=== PATIENT | male | born 1970 | race African-American/Black ===

== ENCOUNTER 2018-06-19 16:16 | Inpatient (IN) | payer OTHER ==
[~2018-06-19] VITALS: Ht 154.9 cm; Wt 162.0 kg
[~2018-06-19 16:16] MED LIST: AUGMENTIN 875-1 EACH PO; PERCOCET 5-3251 EACH PO
[2018-06-19 16:45] LABS: ABSOLUTE BASOPHIL COUNT 0 /CUMM (0.0-0.2); ABSOLUTE EOSINOPHIL COUNT 0.3 /CUMM (0.0-0.7); ABSOLUTE GRANULOCYTE CT 4.2 /CUMM (1.4-6.5); ABSOLUTE LYMPH COUNT 1.7 /CUMM (1.2-3.4); ABSOLUTE MONOCYTE COUNT 0.5 /CUMM (0.10-0.60); BASOPHIL % 0.4 % (0.0-2.0); GRANULOCYTE % 62.9 % (42.2-75.2); HEMATOCRIT 45.2 % (42-52); MEAN CORPUSCULAR HGB 28.6 PG (27.0-31.0); MEAN CORPUSCULAR HGB CONC 33.7 G/DL (33.0-37.0); MEAN CORPUSCULAR VOLUME 84.9 FL (80.0-94.0); MEAN PLATELET VOLUME 10.3 FL (7.4-10.4); PLATELET COUNT 164 /CUMM (130-400); RED BLOOD CELL CT 5.32 /CUMM (4.70-6.10); WHITE BLOOD CELL COUNT 6.8 /CUMM (4.8-10.8)
--- NOTE | 2018-06-19 16:46 | ED DYSPNEA/ASTHMA COMPLAINT ---
History of Present Illness General Chief Complaint: Upper Respiratory Sx/Fever Stated Complaint: URI X 3DAYS Source: patient Exam Limitations: no limitations Vital Signs & Intake/Output Vital Signs & Intake/Output Vital Signs Date Time Temp Pulse Resp B/P B/P Pulse O2 O2 Flow FiO2 Mean Ox Delivery Rate 06/19 1820 92 Nasal 4.0L Cannula 06/19 1819 80 22 187/97 87 Room Air 06/19 1716 93 Nasal 3.5L Cannula 06/19 1701 89 06/19 1650 91 06/19 1630 92 06/19 1618 97.4 89 20 176/97 88 Room Air Room Air Allergies Coded Allergies: No Known Allergies (06/19/18) Reconcile Medications Amoxicillin/Potassium Clav (Augmentin 875-125 Tablet) 1 EACH TABLET 1 TAB PO BID dental Oxycodone HCl/Acetaminophen (Percocet 5-325 MG Tablet) 1 EACH TABLET 1 TAB PO BID PRN breakthrough pain Triage Note: PT TO ED FOR C/C OF SOB, PRODUCTIVE COUGH, ACHING JOINTS AND CHILLS. PT INITIALLY 88% RA AND THEN CAME TO 90% IN TRIAGE. NO SIGNIFICANT DISTRESS NOTED IN TRIAGE. DENIES CHEST PAIN. Triage Nurses Notes Reviewed? yes Onset: Abrupt Duration: day(s): (3), constant, continues in ED, getting worse Timing: single episode today Severity: moderate, severe Activities at Onset: none Prior Episodes/Possible Cause: no prior episodes Associated Symptoms: cough, wheezing HPI: 48-year-old male history of hypertension presents for evaluation of cough congestion and wheezing for the past 3 days. Patient was turned over to smoker. His cough is productive of yellow sputum. He reports associated chest tightness and shortness of breath. No chest pain no hemoptysis. No lower extremity edema. He only takes blood pressure medicine but did not take it today. He denies any history of lung disease. He's never been prescribed a inhaler. He does report some chills and sweats. (Luis Hunt) Past History Travel History Traveled to [place] past 21 day No Medical History Any Pertinent Medical History? 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 No (Luis Hunt) Review of Systems Review of Systems Constitutional: Reports: malaise, weakness. EENTM: Reports: no symptoms. Respiratory: Reports: see HPI, cough, short of breath, sputum production, wheezing. Cardiovascular: Reports: no symptoms. GI: Reports: no symptoms. Genitourinary: Reports: no symptoms. Musculoskeletal: Reports: no symptoms. Skin: Reports: no symptoms. Neurological/Psychological: Reports: no symptoms. Hematologic/Endocrine: Reports: no symptoms. Immunologic/Allergic: Reports: no symptoms. All Other Systems: Reviewed and Negative (Luis Hunt) Physical Exam Physical Exam General Appearance: well developed/nourished, no apparent distress, alert, awake , obese Head: atraumatic, normal appearance Eyes: Bilateral: normal appearance, PERRL, EOMI. Ears, Nose, Throat: normal pharynx, normal ENT inspection, hearing grossly normal Neck: normal inspection, supple, full range of motion Respiratory: chest non-tender, no respiratory distress, rhonchi, wheezing Cardiovascular: regular rate/rhythm, normal peripheral pulses Peripheral Pulses: 2+ radial (R), 2+ radial (L) Gastrointestinal: normal bowel sounds, soft, non-tender, no organomegaly Extremities: normal inspection, normal range of motion, no edema Neurologic/Psych: no motor/sensory deficits, awake, alert, oriented x 3, normal gait, normal mood/affect Skin: intact, normal color, warm/dry Lymphatic: no anterior cervical emi Core Measures ACS in differential dx? No CVA/TIA Diagnosis No Sepsis Present: No Sepsis Focused Exam Completed? No (Luis Hunt) Progress Differential Diagnosis: asthma, AMI, bronchitis, CHF, COPD, musculoskeletal pain , pericarditis, pulmonary embolism, pneumonia, pneumothorax, rib fracture, unstable angina Plan of Care: Orders Procedure Date/time Status Heart Healthy Diet 06/20 B Active Patient Data 06/19 1913 Active ED Holding Orders 06/19 1900 Active Admit to inpatient 06/19 1900 Active Vital Signs 06/19 1900 Active Code Status 06/19 1900 Active Add-on Test (ER Only) 06/19 1710 Active MAGNESIUM 06/19 1630 Complete TROPONIN LEVEL 06/19 1621 Complete D-DIMER 06/19 1621 Complete COMPREHENSIVE METABOLIC PANEL 06/19 162 Complete CBC WITHOUT DIFFERENTIAL 06/19 162 Complete EKG 06/19 1621 Active Current Medications Sig/Angi Start time Last Medication Dose Stop Time Status Admin Amlodipine Besylate 10 MG DAILY 06/20 0900 AC (Norvasc) Azithromycin 500 MG ONCE ONE 06/19 1830 AC 06/19 (Zithromax) 06/19 192 1849 Sodium Chloride 250 ML (Normal Saline 0.9%) Magnesium Sulfate 1 GM ONCE ONE 06/19 1715 AC 06/19 (Mag Sulfate in D5) 06/19 2114 172 Dextrose/Water 100 ML (D5W) Laboratory Tests 06/19/18 1630: Anion Gap 8, Estimated GFR > 60, BUN/Creatinine Ratio 12.2, Glucose 110 H, Calcium 9.5, Magnesium 1.8, Total Bilirubin 0.4, AST 43, ALT 53, Alkaline Phosphatase 105, Troponin I < 0.01, Total Protein 7.7, Albumin 4.3, Globulin 3.4 , Albumin/Globulin Ratio 1.3, D-Dimer High Sensitivty < 200, CBC w Diff NO MAN DIFF REQ, RBC 5.32, MCV 84.9, MCH 28.6, MCHC 33.7, RDW 15.0 H, MPV 10.3, Gran % 62.9, Lymphocytes % 25.6, Monocytes % 7.1, Eosinophils % 4.0, Basophils % 0.4, Absolute Granulocytes 4.2, Absolute Lymphocytes 1.7, Absolute Monocytes 0.5, Absolute Eosinophils 0.3, Absolute Basophils 0 Patient presents with cough congestion and wheezing chest tightness and shortness of breath. He denies any history of lung disease. He is a heavy smoker. Initial oxygen saturation is 88% on room air. His pulse and a continuous neb given 60 mg prednisone. Labs chest x-ray EKG ordered. Blood work ekg are unremarkable. Chest x-ray is clear. Patient continues to have significant wheezing. Magnesium was ordered. Patient will require admission. He is also hypertensive he did not take his blood pressure medicines. Toprol hydrochlorothiazide amlodipine and losartan were ordered. Patient is on 4 L nasal cannula and maintaining oxygen saturation at 91-92%. He will require admission for pulmonology consult, IV antibiotics, IV steroids, serial labs, oxygen. Case discussed with Dr. Vaughn he agrees. Diagnostic Imaging: Viewed by Me: Radiology Read. Discussed w/RAD: Radiology Read. CXR Impression: PATIENT: ZAIRA CULLEN PRESENT AGE: 48 PATIENT ACCOUNT NO: [id number] : 71 LOCATION: [facility] ORDERING PHYSICIAN: Luis BARCLAY SERVICE DATE: 06/19/18 EXAM TYPE: RAD - XRY-CHEST XRAY, TWO VIEWS EXAMINATION: XR CHEST CLINICAL INFORMATION: Cough. Wheezing. Hypoxia. COMPARISON: Chest x-ray 12/17/2006 TECHNIQUE: 2 views of the chest were obtained. FINDINGS: No significant abnormality is noted involving the heart, lungs, mediastinum, bony thorax or soft tissues. IMPRESSION: Unremarkable examination. DICTATED BY: Juan Edwards MD DATE/TIME DICTATED:06/19/181837 TOOL CHASER:JAYME DATE/TIME TRANSCRIBED:06/19/181837 CONFIDENTIAL, DO NOT COPY WITHOUT APPROPRIATE AUTHORIZATION. <Electronically signed in Other Vendor System> SIGNED BY: Juan Edwards MD 06/19/181841 Initial ED EKG: normal sinus rhythm, first-degree AV block, left axis deviation AGE indeterminate anteroseptal infarct (Luis Hunt) Departure Departure Disposition: STILL A PATIENT Condition: Stable Clinical Impression Primary Impression: Bronchitis Secondary Impressions: Hypoxia Referrals: Christopher CHAIDEZ,Juan Melgoza (PCP/Family) Departure Forms: Customer Survey General Discharge Information Admission Note Spoke With: Monty George MD Documentation of Exam: Documentation of any treatments & extenuating circumstances including Concerns Regarding Discharge (functional status, medication knowledge or non-compliance, living conditions, etc.) that warrant an admission rather than observation:pt is hypoxic on room ri to 88% despitie multiple nebs and steriods. he will need serial labs, oxygen, iv steroids, duo nebs, pulmonology] (Luis Hunt) PA/LIBERAL ARTS TEACHER Co-Sign Statement Statement: ED Attending supervision documentation- [X] I saw and evaluated the patient. I have also reviewed all the pertinent lab results and diagnostic results. I agree with the findings and the plan of care as documented in the PA's/LIBERAL ARTS TEACHER's documentation. [X] I have reviewed the ED Record and agree with the PA's/LIBERAL ARTS TEACHER's documentation. [] Additions or exceptions (if any) to the PAs/LIBERAL ARTS TEACHER's note and plan are summarized below: [Patient to be admitted for severe asthmatic bronchitis. Pulmonary consultation , nebulizers, IV antibiotics, IV steroids] (Roderick CHAIDEZ,Jim Laird) Critical Care Note Critical Care Note Critical Care Time: 75-104 min (Luis Hunt) [X] I have reviewed the ED Record and agree with the PA's/LIBERAL ARTS TEACHER's documentation. [] Additions or exceptions (if any) to the PAs/LIBERAL ARTS TEACHER's note and plan are summarized below: [Patient to be admitted for severe asthmatic bronchitis. Pulmonary consultation , nebulizers, IV antibiotics, IV steroids] (Roderick CHAIDEZ,Jim Laird) Critical Care Note Critical Care Note Critical Care Time: 75-104 min (Luis Hunt)
--- NOTE | 2018-06-19 18:42 | RADIOLOGY REPORT ---
EXAMINATION: XR CHEST CLINICAL INFORMATION: Cough. Wheezing. Hypoxia. COMPARISON: Chest x-ray 12/17/2006 TECHNIQUE: 2 views of the chest were obtained. FINDINGS: No significant abnormality is noted involving the heart, lungs, mediastinum, bony thorax or soft tissues. IMPRESSION: Unremarkable examination.
--- NOTE | 2018-06-19 19:25 | History & Physical ---
Mara Cline 06/19/181924: General Information and HPI MD Statement: I have seen and personally examined ZAIRA CULLEN and documented this H&P. The patient is a 48 year old M who presented with a patient stated chief complaint of []. Source of Information: patient Exam Limitations: no limitations History of Present Illness: 48 year old obese male with PMH HTN, HERACLIO with CPAP hs (dx 4 weeks ago), current 1ppd smoker x 27years presenting with three day history of sinus congestion, rhinorrhea, and productive cough. Patient reports associated symptoms including progressive SOB, tactile fevers, chills, sweats, decrease in appetite, and pleuritic chest pain with coughing. He also had a headache. He states his granddaughter was recently ill with URI and he was caring for her. He tried taking OTC cough syrup with minimal relief. I did advise the patient that he needs to be cautious when taking OTC cough syrups with HTN as these may worsen his HTN. He denies chest pain at rest or with ambulation, n/v/d, dysuria, abdominal pain. 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 Home Who Do You Live With? child (two sons) Services at Home: None Primary Language: Slovak Smoking Status: Current Everyday Smoker (1ppd x 27 years) ETOH Use: 3 beers and 5 tequila shots on weekends Illicit Drug Use: denies illicit drug use Employment History Employment Unemployed (lost his job in March 2018) Review of Systems Review of Systems Constitutional: Reports: chills, diaphoresis, fever. EENTM: Reports: nasal congestion. Denies: eye drainage, ear discharge, throat pain. Cardiovascular: Reports: no symptoms. Respiratory: Reports: cough, short of breath, sputum production. GI: Denies: abdominal pain, constipation, diarrhea, nausea, vomiting. Genitourinary: Reports: no symptoms. Musculoskeletal: Reports: no symptoms. Skin: Reports: no symptoms. Neurological/Psychological: Reports: no symptoms. Exam & Diagnostic Data Last 24 Hrs of Vital Signs/I&O Vital Signs Date Time Temp Pulse Resp B/P B/P Pulse O2 O2 Flow FiO2 Mean Ox Delivery Rate 06/20 0028 71 92 06/20 0008 92 Nasal 3.0L Cannula 06/19 2214 98.3 76 20 169/80 91 Nasal Cannula 06/19 2200 Nasal 2.0L Cannula 06/19 2137 98.2 76 18 152/81 94 Room Air 06/19 2029 79 17 180/89 94 Nasal Cannula 06/19 1820 92 Nasal 4.0L Cannula 06/19 1819 80 22 187/97 87 Room Air 06/19 1716 93 Nasal 3.5L Cannula 06/19 1701 89 06/19 1650 91 06/19 1630 92 06/19 1618 97.4 89 20 176/97 88 Room Air Room Air Intake & Output 06/20 0800 06/20 0000 06/19 1600 Intake Total 340 Output Total Balance 340 Intake, IV 100 Intake, Oral 240 Patient 357 lb Weight Weight Bed scale Measurement Method Physical Exam General Appearance Alert, Oriented X3, Cooperative, No Acute Distress, obese male Skin 1+pitting edema to LLE Skin Temp/Moisture Exam: Hot/Diaphoretic HEENT Atraumatic, PERRLA, frontal/maxillary sinuses NTTP Neck Supple Lymphatic Cervical nl Cardiovascular Regular Rate, Normal S1, Normal S2, No Murmurs Lungs inspiratory/expiratory wheezes diffuse Abdomen Normal Bowel Sounds, Soft, No Tenderness, obese Extremities No Cyanosis, Normal Pulses, symmetrical bilateral lower extremities; non tender to palp Assessment/Plan Assessment: 48 year old obese male with PMH HTN, HERACLIO with CPAP hs (dx 4 weeks ago), current 1ppd smoker x 27years presenting with three day history of sinus congestion, rhinorrhea, and productive cough. He was recently taking care of his granddaughter who had URI. Patient was acutely hypoxic on presentation to ED; sat 88% requiring 4LNC. Patient will be admitted to the general medicine service for further care of the following: Problem List: 1. URI 2. Acute Hypoxic respiratory failure 2/2 bronchitis 3. Hypertensive Urgency Admission Data: VS T97.4 P89 RR20 BP 180/70 Sat 88%RA Labs: WBC 6.8 H/H 15.2/45.2 Na 138 K3.5 BUN/Cr 11/0.9 D-dimer negative CXR no acute findings ED tx: ceftriaxone; azithromycin; magnesium sulfate #URI-likely viral in nature and symptoms should resolve. Patient caring for sick granddaughter with URI and this is likely how he contracted his current illness. -symptomatic care -tylenol for fever/bodyaches -consider cough suppressant if patient complains of persistent cough. He did not cough while we saw him in the ED. #Acute hypoxic respiratory failure 2/2 bronchitis -supplemental oxygen as needed; taper -insentive spirometry 10x/hr to prevent atelectasis-->PNA -Azithromycin 5 day course -duonebs -Methylprednisolone 40mg Q8hr IV #Hypertensive urgency-patient had not taken his home HTN meds today and was taking OTC cough syrup which can exacerbate his HTN. -home medications #Chronic medical problems -CPAP settings 14 for HERACLIO DVT prophylaxis: lovenox/ALPS/ambulation Code Status: full code As Ranked By This Provider Problem List: 1. Bronchitis 2. Hypoxia Core Measures/Misc (07/15) Acute Coronary Syndrome ACS Diagnosis: No Congestive Heart Failure Congestive Heart Failure Diagnosis No Cerebrovascular Accident CVA/TIA Diagnosis: No VTE (View Protocol) VTE Risk Factors Acute Medical Illness No Mechanical VTE Prophylaxis d/t N/A MechProphylax Ordered No VTE Pharm Prophylaxis d/t NA PharmProphylax ordered Sepsis (View protocol) Sepsis Present: No If YES complete Sepsis Event Note If YES complete Sepsis Event Note Monty George MD 06/19/18 6975: General Information and HPI Allergies/Medications Home Med list Amlodipine Bes/Olmesartan Med (Mellissa 10-40 MG Tablet) 10 MG-40 MG TABLET 1 TAB PO DAILY BP (Reported) Hydrochlorothiazide 25 MG TABLET 1 TAB PO DAILY DIURETIC/BP (Reported) Metoprolol Succ XL (Toprol Xl) 50 MG TAB 1 TAB PO DAILY HEART/BP (Reported) Core Measures/Misc (07/15) Sepsis (View protocol) If YES complete Sepsis Event Note If YES complete Sepsis Event Note Attending MD Review Statement Attending Statement Attending MD Statement: examined this patient, discuss w/resident/PA/FEATHER SHAPER, agreed w/resident/PA/FEATHER SHAPER Attending Assessment/Plan: Patient is seen and examined independently by me. Care plan discussed with director of medical education and/or resident. I agree with the physical exam findings and plan of care as outlined above with the following changes and additions. 48 yo M with history of HTN, HERACLIO on CPAP 14 nightly, chronic smoker (20 pack years), presented with SOB, congestion and productive cough with yellow sputum for 3 days. He also has wheezing, fever and chills. He also has chest tightness associated with coughing. He denies recent travel. But her granddaughter has URI symptoms recently. He is noted to have O2 sat 88% on RA and up to low 90s with NC. On exam, heart: regular, S1S2. Lungs: diffused expiratory wheezing with no rhonchi, rales or crackles. In the ED, patient is afebrile. WBC 6.8. D-dimer <200. Troponin <0.01. CXR shows no acute consolidation or edema. Patient got prednisone 60 mg PO, Duoneb x1, albuterol neb x3, Mag 1 g IV, Zithromax 500 mg IV and ceftriaxone 1 g IV in the ED. Patient is admitted to [facility] for acute hypoxic respiratory failure with COPD exacerbation and bronchitis. Start O2, steroid, Duoneb, albuterol prn and Zithromax. Advise for smoking cessation. CPAP nightly. Monty George MD [facility] [place] 06/19/18 2345: Core Measures/Misc (07/15) Sepsis (View protocol) If YES complete Sepsis Event Note If YES complete Sepsis Event Note Resident Review Statement Resident Statement: examined this patient, discussed with tech intern, agreed with tech intern, discussed with family, reviewed EMR data (avail), discussed with nursing , discussed with case mgmt, reviewed images, amended to note Other Findings: This is a 48-year-old male with past medical history significant for hypertension, obstructive sleep apnea on CPAP presented to the hospital for evaluation of shortness of breath for 3 days. Patient reports ongoing cough for 3 days associated with runny nose and nasal congestion. He also reports yellow colored sputum production and shortness of breath associated with chest tightness. He reports worsening shortness of breath with minimal exertion. He denies any travel history. He reports exposure to sick contacts at home who has upper respiratory tract infection. Of note he never followed any global product manager. He was never diagnosed with COPD. Has obstructive sleep apnea, using CPAP at home. He smokes 1 pack per day for 27 years. Reports alcohol use. Denies illicit drug abuse. On review of systems he denied any chest pain, palpitations, fever, chills, nausea, vomiting, abdominal pain, change in bladder or bowel habits. He reports left lower extremity minor swelling. -------- Vitals afebrile, heart rate 89, respiratory 20, blood pressure 176/97, saturating at 92 on 4 L Labs WBC 6, hemoglobin 15, hematocrit 40, platelets 164 Sodium 138, potassium 3.5, BUN 11 and creatinine 0.9 Chest x-ray no acute cardiopulmonary findings 1. Acute hypoxic respiratory failure secondary to bronchitis Patient presented with worsening shortness of breath with minimal exertion associated with productive cough, runny nose, nasal congestion. Denied fever, chills. He is afebrile, normal WBC count. Chest x-ray no acute cardiopulmonary findings, no pneumonia was found. * Admitted to [facility] * Acute hypoxic respiratory failure most likely secondary to bronchitis/chronic smoking/sick contact exposure and COPD which was not diagnosed * Monitor vitals every shift * Maintain oxygen saturation greater than 90% * Provide oxygen supplementation * IV methylprednisolone 40 every 8 hours * Azithromycin 250 daily for 5 days * incentive spirometry * TR * LORETTA stauffer * Will provide pulm consult at the time of discharge to get outpatient pulmonary function tests Hypertensive urgency Patient has history of hypertension, takes amlodipine, benicar, hydrochlorthiazide, metoprolol at home. He reports that he did not take his medications today. He was found to have blood pressure 180/70 in the emergency room. Received his home meds, blood pressure started improving. Troponin was negative. EKG normal limits. Completely asymptomatic * Continue amlodipine 10 daily * Losartan 100 daily * Hydrochlorothiazide 25 daily * Metoprolol succinate 50 daily Smoker Smokes 1 pack per day for 27 years. Smoking cessation counseling provided Obstructive sleep apnea Continue CPAP at his home settings Full code Regular diet DVT prophylaxis subcu Lovenox Pain pathway Tylenol
[2018-06-19] MEDS ORDERED: TOPROL XL50 M1 PO (19:41)
[2018-06-19] MEDS ORDERED: AZOR 10-40 MG1 EACH PO (19:41)
[2018-06-19] MEDS ORDERED: HYDROCHLOROTHIA25 M1 PO (19:42)
[2018-06-19 22:14] VITALS: BP 169/80
[2018-06-20 05:34] VITALS: BP 100/64
[2018-06-20 06:24] VITALS: BP 120/80
--- NOTE | 2018-06-20 06:50 | PN- Housestaff ---
Alfonso Pena 06/20/18 0647: Subjective Follow-up For: URI Acute Hypoxic respiratory failure secondary to bronchitis Hypertensive Urgency Subjective: I visited and examined the patient is morning, he was lying back in his bed, with his mask on his face. He was alert and oriented 3, in no acute distress. When the nurse checked his oxygen with pulse oximetry, it was 87-88% when he was not on CPAP, on room air. He does not complain of anything, and there was no major reports from nurses overnight. He denies chest pressure, chest pain, lightheadedness, dizziness, nausea, vomiting, abdominal pain, diarrhea, constipation, frequency, dysuria. Review of Systems Constitutional: Reports: see HPI. Objective Last 24 Hrs of Vital Signs/I&O Vital Signs Date Time Temp Pulse Resp B/P B/P Pulse O2 O2 Flow FiO2 Mean Ox Delivery Rate 06/20 1635 93 Nasal 3.0L Cannula 06/20 1600 Nasal 3.0L Cannula 06/20 1505 Nasal 3.0L Cannula 06/20 1402 97.8 76 20 132/80 92 Nasal 3.0L Cannula 06/20 1050 72 92 06/20 0833 97.6 74 20 120/80 06/20 0833 97.6 74 20 120/80 06/20 0832 97.6 74 20 120/80 06/20 0800 93 Nasal 3.0L Cannula 06/20 0800 93 Nasal 3.0L Cannula 06/20 0624 97.6 74 20 120/80 91 CPAP 06/20 0534 97.7 80 20 100/64 95 Room Air 06/20 0320 7 93 06/20 0028 71 92 06/20 0008 92 Nasal 3.0L Cannula 06/19 2214 98.3 76 20 169/80 91 Nasal Cannula 06/19 2200 Nasal 2.0L Cannula 06/19 2137 98.2 76 18 152/81 94 Room Air 06/19 2029 79 17 180/89 94 Nasal Cannula Intake & Output 06/20 1600 06/20 0800 06/20 0000 Intake Total 400 340 Output Total Balance 400 340 Intake, IV 100 Intake, Oral 400 240 Patient 357 lb Weight Weight Bed scale Measurement Method Physical Exam General Appearance: Alert, Oriented X3, Cooperative, No Acute Distress Skin: No Rashes Skin Temp/Moisture Exam: Warm/Dry Sepsis Skin Exam (color): Normal for Ethnicity HEENT: Atraumatic Neck: Supple Cardiovascular: Regular Rate, Normal S1, Normal S2 Lungs: Generalized wheezing Abdomen: Normal Bowel Sounds, Soft, No Tenderness Extremities: No Edema Assessment/Plan Assessment: 48 year old obese male with PMH HTN, HERACLIO with CPAP hs (dx 4 weeks ago), current 1ppd smoker for 27years presenting with three day history of sinus congestion, rhinorrhea, and productive cough. He was recently taking care of his granddaughter who had URI. Patient was acutely hypoxic on presentation to ED; sat 88% requiring 4LNC. He had O2 saturation of 87-88% while he was on room air. We will check oxygen saturation with pulse oximetry at night when he is using his CPAP machine on room air. URI: likely viral in nature and symptoms should resolve. Patient caring for sick granddaughter with URI and this is likely how he contracted his current illness. Plan: symptomatic care, tylenol for fever/bodyaches, consider cough suppressant if patient complains of persistent cough. He did not cough while we saw him in the ED. Acute hypoxic respiratory failure: Secondary to bronchitis, knit tubing dyer consult appreciated. Plan: supplemental oxygen as needed; taper, insentive spirometry 10x/hr to prevent atelectasis-->PNA, Azithromycin 5 day course, duonebs, Methylprednisolone 40mg Q8hr IV Hypertensive urgency: patient had not taken his home HTN meds today and was taking OTC cough syrup which can exacerbate his HTN. Asymptomatic Plan: home medications #Chronic medical problems -CPAP settings 14 for HERACLIO DVT prophylaxis: lovenox/ALPS/ambulation Code Status: full code Problem List: 1. Bronchitis 2. Hypoxia 3. HERACLIO on CPAP 4. HTN (hypertension) Pain Ratin Pain Location: Not applicable Pain Goal: Remain pain free Pain Plan: Not applicable Tomorrow's Labs & Rationales: As indicated Andreas Wing MD 06/20/18 1427: Attending MD Review Statement Attending Statement Attending Statement: examined this patient, discuss w/resident/PA/STEEL DIE PRINTER, agreed w/resident/PA/STEEL DIE PRINTER, discussed with family, reviewed EMR data (avail), discussed with nursing, discussed with case mgmt, reviewed images, amended to note Attending Assessment/Plan: The patient was seen and discussed with house staff. Appreciate pulmonary input. Will continue IV Medrol & aerosol. Overnight pulse ox to be done (respiratory), oral Zithromax.
[2018-06-20 10:04] LABS: ABSOLUTE BASOPHIL COUNT 0 /CUMM (0.0-0.2); ABSOLUTE EOSINOPHIL COUNT 0 /CUMM (0.0-0.7); ABSOLUTE MONOCYTE COUNT 0.1 /CUMM (0.10-0.60); BASOPHIL % 0.2 % (0.0-2.0); EOSINOPHIL % 0 % (0-5); HEMATOCRIT 44.1 % (42-52); MEAN CORPUSCULAR HGB 28.8 PG (27.0-31.0); MEAN CORPUSCULAR HGB CONC 33.7 G/DL (33.0-37.0); MEAN CORPUSCULAR VOLUME 85.7 FL (80.0-94.0); PLATELET COUNT 153 /CUMM (130-400); RED BLOOD CELL CT 5.15 /CUMM (4.70-6.10); WHITE BLOOD CELL COUNT 9.1 /CUMM (4.8-10.8)
[2018-06-20 11:28] LABS: GRANULOCYTE % 87.9 % (42.2-75.2)
--- NOTE | 2018-06-20 12:30 | Cons- Pulmonary ---
General Information and HPI Consulting Request Date of Consult: 06/20/18 Requested By: Dr. Wing Reason for Consult: Bronchospasm Source of Information: patient, family, old records Exam Limitations: no limitations History of Present Illness: The patient is a 48 year old male with a past medical history significant for extremely severe HERACLIO, noting the patient had an overnight split sleep study on that showed an overall apnea-hypopnea index of 67 events per hour with an oxyhemoglobin saturation mina of 70%. The patient's REM AHI was elevated at 92 events per hour. The patient was placed on nasal CPAP, and found to be well controlled at a pressure of 14 cm H2O. The patient also has a past medical history significant for hypertension, and tobacco use noting he is a current smoker and has been smoking 1 pack per day for the past 27 years. The patient was admitted with a 3 day history of increased chest congestion, cough productive of yellow joel sputum, nasal congestion, and increased shortness of breath. The patient felt so short of breath, he thought he was going to pass out. He had no chest pain. There is no report of fevers. The patient has had exposure to known sick contacts at home. The patient has never been admitted to the hospital for respiratory issues. On presentation, the patient was found to have significant evidence of bronchospasm and tracheobronchitis. His chest x- ray was unremarkable. The patient is currently being treated with IV Solu- Medrol 40 mg every 8 hours, oral azithromycin, nebulizer treatment/total respiratory care, and guaifenesin. He reports feeling improved since admission. Allergies/Medications Allergies: Coded Allergies: No Known Allergies (06/19/18) Home Med List: Amlodipine Bes/Olmesartan Med (Mellissa 10-40 MG Tablet) 10 MG-40 MG TABLET 1 TAB PO DAILY BP (Reported) Hydrochlorothiazide 25 MG TABLET 1 TAB PO DAILY DIURETIC/BP (Reported) Metoprolol Succ XL (Toprol Xl) 50 MG TAB 1 TAB PO DAILY HEART/BP (Reported) Current Medications: Current Medications Sig/Angi Start time Last Medication Dose Route Stop Time Status Admin Acetaminophen 650 MG Q6P PRN 06/19 2100 AC PO Albuterol Sulfate 3 ML EVERY 4 HRS/AWAKE 06/20 1200 AC 06/20 INH 1056 Albuterol Sulfate 3 ML ONCE ONE 06/19 1715 DC 06/19 INH 06/19 1716 1716 Albuterol Sulfate 3 ML ONCE ONE 06/19 1700 DC 06/19 INH 06/19 1701 1700 Albuterol Sulfate 3 ML ONCE ONE 06/19 1645 DC 06/19 INH 06/19 1646 1649 Albuterol Sulfate 3 ML ONCE ONE 06/19 1630 DC 06/19 INH 06/19 1631 1630 Amlodipine Besylate 10 MG DAILY 06/20 09 CAN PO Amlodipine Besylate 10 MG DAILY 06/20 0900 AC 06/20 PO 0832 Amlodipine Besylate 0 .STK-MED ONE 06/19 1919 DC PO Amlodipine Besylate 10 MG ONCE ONE 06/19 1915 DC 06/19 PO 06/19 1916 192 Azithromycin 250 MG DAILY 06/20 0900 AC 06/20 PO 0833 Azithromycin 500 MG ONCE ONE 06/19 1830 DC 06/19 Sodium Chloride 250 ML IV 06/19 1929 1849 Ceftriaxone Sodium 0 .STK-MED ONE 06/19 184 DC .ROUTE Ceftriaxone Sodium 1,000 MG ONCE ONE 06/19 1830 DC 06/19 IV 06/19 183 1849 Enoxaparin Sodium 40 MG DAILY 06/20 0900 AC 06/20 SC 0833 Guaifenesin 0 .STK-MED ONE 06/20 1113 DC PO Guaifenesin 600 MG Q12 06/20 0945 AC 06/20 PO 1113 Hydrochlorothiazide 25 MG DAILY 06/20 0900 AC 06/20 PO 0832 Hydrochlorothiazide 25 MG ONCE ONE 06/19 1915 DC 06/19 PO 06/19 1916 2117 Ipratropium [place] 2.5 ML EVERY 4 HRS/AWAKE 06/20 1200 AC 06/20 INH 1056 Ipratropium [place] 2.5 ML ONCE ONE 06/19 1630 DC 06/19 INH 06/19 1631 1630 Losartan Potassium 100 MG DAILY 06/20 0900 AC 06/20 PO 0833 Losartan Potassium 0 .STK-MED ONE 06/19 1919 DC PO Losartan Potassium 50 MG ONCE ONE 06/19 1915 DC 06/19 PO 06/19 1916 192 Magnesium Sulfate 1 GM ONCE ONE 06/19 1715 DC 06/19 Dextrose/Water 100 ML IV 06/194 1725 Methylprednisolone 40 MG Q8 06/19 2200 AC 06/20 IV 0506 Metoprolol Succinate 50 MG DAILY 06/20 0900 AC 06/20 PO 0833 Metoprolol Tartrate 0 .STK-MED ONE 06/19 191 DC PO Metoprolol Tartrate 50 MG ONCE ONE 06/19 1915 DC 06/19 PO 06/19 1916 1921 Prednisone 60 MG ONCE ONE 06/19 1630 DC 06/19 PO 06/19 1631 1626 Prednisone 0 .STK-MED ONE 06/19 1625 DC PO Review of Systems Review of Systems Constitutional: Reports: chills, malaise. Denies: diaphoresis, weakness, unexplained weight loss. EENTM: Denies: no symptoms. Cardiovascular: Reports: orthopena. Denies: chest pain, edema, palpitations, peripheral edema, syncope. Respiratory: Reports: cough, short of breath, sputum production, wheezing. Denies: hemoptysis, orthopnea, stridor. GI: Denies: no symptoms. Genitourinary: Denies: no symptoms. Skin: Denies: no symptoms. Past History Travel History Traveled to [place] past 21 day No Medical History Blood Transfusion Hx: No Neurological: NONE EENT: NONE Cardiovascular: hypertension Respiratory: obstructive sleep apnea Gastrointestinal: NONE Hepatic: NONE Renal: NONE Musculoskeletal: NONE Psychiatric: NONE Endocrine: NONE Blood Disorders: NONE Cancer(s): NONE TRAINING DEVELOPMENT MANAGER/Reproductive: NONE Surgical History Surgical History: 1 Psychosocial History Where Do You Live? Home Who Do You Live With? child (two sons) Services at Home: None Primary Language: Indonesian Smoking Status: Current Everyday Smoker (1ppd x 27 years) ETOH Use: 3 beers and 5 tequila shots on weekends Illicit Drug Use: denies illicit drug use Employment History Employment: Unemployed (lost his job in March 2018) Exam & Diagnostic Data Last 24 Hrs of Vital Signs/I&O Vital Signs Date Time Temp Pulse Resp B/P B/P Pulse O2 O2 Flow FiO2 Mean Ox Delivery Rate 06/20 1050 72 92 06/20 0833 97.6 74 20 120/80 06/20 0833 97.6 74 20 120/80 06/20 0832 97.6 74 20 120/80 06/20 0624 97.6 74 20 120/80 91 CPAP 06/20 0534 97.7 80 20 100/64 95 Room Air 06/20 0320 7 93 06/20 0028 71 92 06/20 0008 92 Nasal 3.0L Cannula 06/194 98.3 76 20 169/80 91 Nasal Cannula 06/19 2200 Nasal 2.0L Cannula 06/19 2137 98.2 76 18 152/81 94 Room Air 06/19 2029 79 17 180/89 94 Nasal Cannula 06/19 1820 92 Nasal 4.0L Cannula 06/19 1819 80 22 187/97 87 Room Air 06/19 1716 93 Nasal 3.5L Cannula 06/19 1701 89 06/19 1650 91 06/19 1630 92 06/19 1618 97.4 89 20 176/97 88 Room Air Room Air Intake & Output 06/20 1600 06/20 0800 06/20 0000 Intake Total 400 340 Output Total Balance 400 340 Intake, IV 100 Intake, Oral 400 240 Patient 357 lb Weight Weight Bed scale Measurement Method Physical Exam General Appearance: no apparent distress, alert, awake, comfortable Head: atraumatic Eyes: Bilateral: PERRL. Neck: supple Respiratory: no respiratory distress, wheezing Cardiovascular: regular rate/rhythm Gastrointestinal: normal bowel sounds, soft, non-tender Extremities: no edema Skin: intact, normal color, warm/dry Last 48 Hrs of Labs/Cy: Laboratory Tests 06/20/18 0845: Anion Gap 10, Estimated GFR > 60, BUN/Creatinine Ratio 16.7, CBC w Diff NO MAN DIFF REQ, RBC 5.15, MCV 85.7, MCH 28.8, MCHC 33.7, RDW 15.0 H, MPV 11.0 H, Gran % 87.9 H, Lymphocytes % 10.6 L, Monocytes % 1.3 L, Eosinophils % 0, Basophils % 0.2, Absolute Granulocytes 8.0 H, Absolute Lymphocytes 1.0 L, Absolute Monocytes 0.1, Absolute Eosinophils 0, Absolute Basophils 0 06/19/18 1630: Anion Gap 8, Estimated GFR > 60, BUN/Creatinine Ratio 12.2, Glucose 110 H, Calcium 9.5, Magnesium 1.8, Total Bilirubin 0.4, AST 43, ALT 53, Alkaline Phosphatase 105, Troponin I < 0.01, Total Protein 7.7, Albumin 4.3, Globulin 3.4 , Albumin/Globulin Ratio 1.3, D-Dimer High Sensitivty < 200, CBC w Diff NO MAN DIFF REQ, RBC 5.32, MCV 84.9, MCH 28.6, MCHC 33.7, RDW 15.0 H, MPV 10.3, Gran % 62.9, Lymphocytes % 25.6, Monocytes % 7.1, Eosinophils % 4.0, Basophils % 0.4, Absolute Granulocytes 4.2, Absolute Lymphocytes 1.7, Absolute Monocytes 0.5, Absolute Eosinophils 0.3, Absolute Basophils 0 Assessment/Plan Impression/Plan: 1. Acute bronchitis. 2. Acute bronchospasm. 3. Extremely severe obstructive sleep apnea, controlled on CPAP at 14 cm H20. 4. Nocturnal hypoxemia. 5. Morbid obesity. 6. Tobacco use disorder. Recommendations: * Check nocturnal continuous pulse oximetry while on CPAP on room air. Please request this from respiratory. * Continue nasal CPAP at 14 cm H2O. * Continue nebs/total respiratory care. * If the patient's bronchial spasm does not improve, we need to consider discontinuation of beta-blockers. * Continue Solu-Medrol 40 mg every 8 hours. * Complete 5 days of oral azithromycin. * Send sputum for culture if able. * Continue blood pressure control per primary team. * DVT prophylaxis at all times. * Continue all supportive care. Thank you for the consult. I will follow the patient along with you and provide further recommendations as necessary. Please do not hesitate to contact me if there are any questions or issues. Consult Acknowledgment - Thank you for your consult request.
[2018-06-20 14:02] VITALS: BP 132/80
[2018-06-20 21:45] VITALS: BP 160/90
[2018-06-21 06:38] VITALS: BP 102/50
--- NOTE | 2018-06-21 07:04 | PN- Housestaff ---
Renee Nazario 06/21/18 0704: Subjective Follow-up For: Acute hypoxic resp. failure sec to bronchitis Subjective: Pt seen lying comfortably in bed, taking nebs Rx. NAD. He is complaining of post -nasal drip. Review of Systems Constitutional: Reports: see HPI. EENTM: Reports: no symptoms. Cardiovascular: Reports: no symptoms. Respiratory: Reports: see HPI. Gastrointestinal: Reports: no symptoms. Genitourinary: Reports: no symptoms. Musculoskeletal: Reports: no symptoms. Skin: Reports: no symptoms. Neurological/Psychological: Reports: no symptoms. Hematologic/Endocrine: Reports: no symptoms. Immunologic/Allergic: Reports: no symptoms. Objective Last 24 Hrs of Vital Signs/I&O Vital Signs Date Time Temp Pulse Resp B/P B/P Pulse O2 O2 Flow FiO2 Mean Ox Delivery Rate 06/21 1637 93 Room Air Room Air 06/21 1447 98.3 74 20 122/62 91 Nasal 3.0L Cannula 06/21 1400 95 Room Air 06/21 1143 94 Room Air Room Air 06/21 0859 97.7 44 20 102/50 06/21 0859 97.7 44 20 102/50 06/21 0858 97.7 44 20 102/50 06/21 0814 93 Nasal 1.0L Cannula 06/21 0800 92 Nasal 3.0L Cannula 06/21 0638 97.7 44 20 102/50 92 Nasal 3.0L Cannula 06/21 0610 67 90 06/21 0600 89 CPAP 06/21 0308 55 90 06/21 0015 61 89 06/21 0000 93 Nasal 3.0L Cannula Intake & Output 06/21 1600 06/21 0800 06/21 0000 Intake Total 800 180 120 Output Total Balance 800 180 120 Intake, Oral 800 180 120 Physical Exam General Appearance: Alert, Oriented X3, Cooperative, No Acute Distress Skin: No Rashes, No Breakdown, No Significant Lesion Skin Temp/Moisture Exam: Cool/Dry Sepsis Skin Exam (color): Normal for Ethnicity HEENT: Atraumatic, Mucous Membr. moist/pink Neck: Supple Cardiovascular: Regular Rate, Normal S1, Normal S2, No Murmurs Lungs: Clear to Auscultation, Normal Air Movement Abdomen: Normal Bowel Sounds, Soft, No Tenderness, No Hepatospenomegaly, No Masses Neurological: Normal Speech, Normal Tone, Sensation Intact Extremities: No Clubbing, No Cyanosis, No Edema, Normal Pulses, No Tenderness/ Swelling Assessment/Plan Assessment: 48 year old obese male with PMH HTN, HERACLIO with CPAP hs (dx 4 weeks ago), current 1ppd smoker for 27years presenting with three day history of sinus congestion, rhinorrhea, and productive cough. He was recently taking care of his granddaughter who had URI. Patient was acutely hypoxic on presentation to ED; sat 88% requiring 4L NC. URI: Viral likely. Plan: Added flonase for post-nasal drip. Cont. current rx Acute hypoxic respiratory failure: Secondary to bronchitis. Plan: supplemental oxygen as needed; taper, insentive spirometry 10x/hr to prevent atelectasis-->PNA, Azithromycin 5 day course, duonebs, Methylprednisolone 40mg Q8hr IV Severe HERACLIO: Imtra. CPAP at 14 cm H2O Overnight pulse ox done (results pending). Will continue medrol at current dose as per pulmonary and follow exam/pulse ox. Hypertensive urgency: resolved. DVT Px: Lovenox/alps Code: FC Problem List: 1. HERACLIO (obstructive sleep apnea) 2. HTN (hypertension) 3. Bronchitis Pain Ratin Pain Location: none Pain Goal: Remain pain free Pain Plan: n/a Tomorrow's Labs & Rationales: not required Andreas Wing MD 06/21/18: Attending MD Review Statement Attending Statement Attending MD Statement: examined this patient, discuss w/resident/PA/SPECIFICATION WRITER, agreed w/resident/PA/SPECIFICATION WRITER, reviewed EMR data (avail), discussed with nursing, discussed with case mgmt, amended to note Attending Assessment/Plan: The patient was seen and discussed with house staff, nursing, and case management. Lung exam improved with increased air movement and decreased wheeze. Dose complain of some post nasal drip symptoms. Still requiring oxygen to maintain saturation. Pulmonary input appreciated. The patient has severe sleep apnea. Overnight pulse ox done (results pending). Will continue medrol at current dose as per pulmonary and follow exam/pulse ox.
--- NOTE | 2018-06-21 07:56 | PN- Pulmonary ---
Subjective HPI/Critical Care Issues: The patient is awake and alert. He continues to have a cough and wheezing. He is short of breath with exertion. Despite these symptoms, he continues to improve significantly since admission. The patient is afebrile. His saturations are in the low 90s on 1 L nasal cannula. Nocturnal pulse oximetry was done however results are pending. Objective Current Medications: Current Medications Sig/Angi Start time Last Medication Dose Route Stop Time Status Admin Acetaminophen 650 MG Q6P PRN 06/19 2100 AC 06/20 PO 2138 Albuterol Sulfate 3 ML EVERY 4 HRS/AWAKE 06/20 1200 AC 06/20 INH 8 Amlodipine Besylate 10 MG DAILY 06/20 0900 AC 06/20 PO 0832 Azithromycin 250 MG DAILY 06/20 09 AC 06/20 PO 0833 Enoxaparin Sodium 40 MG DAILY 06/20 0900 AC 06/20 SC 0833 Guaifenesin 0 .STK-MED ONE 06/20 1113 DC PO Guaifenesin 600 MG Q12 06/20 0945 AC 06/20 PO 2138 Hydrochlorothiazide 25 MG DAILY 06/20 0900 AC 06/20 PO 0832 Ipratropium [place] 2.5 ML EVERY 4 HRS/AWAKE 06/20 1200 AC 06/20 INH 8 Losartan Potassium 100 MG DAILY 06/20 0900 AC 06/20 PO 0833 Methylprednisolone 40 MG Q8 06/19 2200 AC 06/21 IV 0558 Metoprolol Succinate 50 MG DAILY 06/20 0900 AC 06/20 PO 0833 Patient Medication 1 ED ONE ONE 06/20 1815 [facility] ED 06/20 181 Vital Signs & I&O Last 24 Hrs of Vitals and I&O: Vital Signs Date Time Temp Pulse Resp B/P B/P Pulse O2 O2 Flow FiO2 Mean Ox Delivery Rate 06/21 0638 97.7 44 20 102/50 92 Nasal 3.0L Cannula 06/21 0610 67 90 06/21 0600 89 CPAP 06/21 0308 55 90 06/21 0015 61 89 06/21 0000 93 Nasal 3.0L Cannula 06/20 2145 98.0 84 20 160/90 92 Nasal 3.0L Cannula 06/20 2000 92 Nasal 3.0L Cannula 06/20 1635 93 Nasal 3.0L Cannula 06/20 1600 Nasal 3.0L Cannula 06/20 1505 Nasal 3.0L Cannula 06/20 1402 97.8 76 20 132/80 92 Nasal 3.0L Cannula 06/20 1050 72 92 06/20 0833 97.6 74 20 120/80 06/20 0833 97.6 74 20 120/80 06/20 0832 97.6 74 20 120/80 06/20 0800 93 Nasal 3.0L Cannula 06/20 08 93 Nasal 3.0L Cannula Intake & Output 06/21 0800 06/21 0000 06/20 1600 Intake Total 180 120 Output Total Balance 180 120 Intake, Oral 180 120 Physical Exam General Appearance: no apparent distress, alert, awake, comfortable, morbidly obese Head: atraumatic Neck: supple Respiratory: no respiratory distress, wheezing Cardiovascular: regular rate/rhythm Gastrointestinal: normal bowel sounds, soft, non-tender Extremities: no edema Skin: intact, normal color, warm/dry Impression/Plan Impression/Plan Impression/Plan: 1. Acute bronchitis. 2. Acute bronchospasm. 3. Extremely severe obstructive sleep apnea, controlled on CPAP at 14 cm H20. 4. Nocturnal hypoxemia. 5. Morbid obesity. 6. Tobacco use disorder. Recommendations: * Follow up nocturnal continuous pulse oximetry -this will help determine if the patient requires home nocturnal oxygen while on CPAP. Discussed with respiratory, they will get us the data. * Continue nasal CPAP at 14 cm H2O. * Continue nebs/total respiratory care. * Continue Solu-Medrol 40 mg IV but decrease to every 12 hours. * Complete 5 days of oral azithromycin. * Follow up sputum culture results. * Continue blood pressure control per primary team. * DVT prophylaxis at all times. * Anticipate discharge over the weekend.
[2018-06-21 14:47] VITALS: BP 122/62
[2018-06-21 23:01] VITALS: BP 130/60
[2018-06-22 06:31] VITALS: BP 148/92
--- NOTE | 2018-06-22 08:58 | PN- Housestaff ---
See Addendum Subjective Follow-up For: Acute hypoxic respiratory failure secondary to acute bronchitis Subjective: No overnight events. Patient feels well this morning with only mild shortness of breath and no chest pain. He was asking about going home but is amenable to staying. Review of Systems Constitutional: Reports: no symptoms. EENTM: Reports: no symptoms. Cardiovascular: Reports: no symptoms. Respiratory: Reports: see HPI. Gastrointestinal: Reports: no symptoms. Genitourinary: Reports: no symptoms. Musculoskeletal: Reports: no symptoms. Skin: Reports: no symptoms. Neurological/Psychological: Reports: no symptoms. Hematologic/Endocrine: Reports: no symptoms. Immunologic/Allergic: Reports: no symptoms. Objective Last 24 Hrs of Vital Signs/I&O Vital Signs Date Time Temp Pulse Resp B/P B/P Pulse O2 O2 Flow FiO2 Mean Ox Delivery Rate 06/22 0842 92 Room Air 06/22 0805 5 148/92 06/22 0805 72 148/92 06/22 0631 98.6 58 20 148/92 94 06/22 0603 47 100 06/22 0325 57 100 06/22 0031 76 100 06/21 2316 94 06/21 2301 98.0 60 20 130/60 92 Room Air 06/21 2200 CPAP 2.0L 06/21 1637 93 Room Air Room Air 06/21 1447 98.3 74 20 122/62 91 Nasal 3.0L Cannula 06/21 1400 95 Room Air 06/21 1143 94 Room Air Room Air 06/21 0859 97.7 44 20 102/50 06/21 0859 97.7 44 20 102/50 06/21 0858 97.7 44 20 102/50 Intake & Output 06/22 1600 06/22 0800 06/22 0000 Intake Total 250 250 Output Total Balance 250 250 Intake, IV 10 10 Intake, Oral 240 240 Physical Exam General Appearance: Alert, Oriented X3, Cooperative, No Acute Distress Cardiovascular: Regular Rate, Normal S1, Normal S2 Lungs: mild wheezing Abdomen: Normal Bowel Sounds, Soft, No Tenderness Current Medications: Current Medications Sig/Angi Start time Last Medication Dose Route Stop Time Status Admin Acetaminophen 650 MG Q6P PRN 06/19 2100 AC 06/20 PO 2138 Albuterol Sulfate 3 ML EVERY 4 HRS/AWAKE 06/20 1200 AC 06/22 INH 0840 Amlodipine Besylate 10 MG DAILY 06/20 0900 AC 06/22 PO 0805 Azithromycin 250 MG DAILY 06/20 0900 AC 06/22 PO 0805 Enoxaparin Sodium 40 MG DAILY 06/20 0900 AC 06/22 SC 0804 Fluticasone 2 SPRAY DAILY 06/21 0900 AC 06/22 Propionate SIMEON 0803 Guaifenesin 600 MG Q12 06/20 0945 AC 06/22 PO 0806 Hydrochlorothiazide 25 MG DAILY 06/20 09 AC 06/22 PO 0806 Insulin Aspart 0 AT BEDTIME 06/21 2100 AC 06/21 SC 2133 Insulin Aspart 0 TIDAC 06/21 1700 AC 06/22 SC 0804 Ipratropium [place] 2.5 ML EVERY 4 HRS/AWAKE 06/20 1200 AC 06/22 INH 0840 Losartan Potassium 100 MG DAILY 06/20 09 AC 06/22 PO 0805 Methylprednisolone 40 MG Q12 06/22 0900 AC IV Methylprednisolone 40 MG Q8 06/19 2200 DC 06/22 IV 0542 Metoprolol Succinate 25 MG DAILY 06/22 09 AC 06/22 PO 08 Metoprolol Succinate 50 MG DAILY 06/20 0900 DC 06/20 PO 0833 Patient Medication 1 ED ONE ONE 06/21 1800 DC Teaching ED 06/21 1801 Assessment/Plan Assessment: 48 year old obese male with PMH of HTN, HERACLIO with CPAP hs (dx 4 weeks ago), current 1ppd smoker here with acute hypoxic respiratory failure secondary to bronchitis. Problem list: 1. Acute hypoxic respiratory failure secondary to bronchitis 2. Obstructive sleep apnea 3. Hypertensive urgency, resolved #Acute hypoxic respiratory failure Secondary to bronchitis: Patient improving. -supplemental oxygen as needed -Azithromycin day 12/31 -duonebs -Methylprednisolone 40mg Q12hr IV -Appreciate pulmonology recommendations -Fluticasone nasal spray #Severe HERACLIO: His sleep study showed that he desaturated to 70% on room air with CPAP at night but did well with 2 L of oxygen. -Mitra. CPAP at 14 cm H2O -We will likely need home oxygen #Hypertensive urgency: resolved. DVT Px: Lovenox/alps Code: FC Problem List: 1. HERACLIO on CPAP 2. Bronchitis Pain Ratin Pain Location: no Pain Goal: Remain pain free Pain Plan: see ap Tomorrow's Labs & Rationales: no
--- NOTE | 2018-06-22 13:26 | PN- Pulmonary ---
Subjective HPI/Critical Care Issues: The patient is awake and alert. He reports slow improvement. He still has dyspnea on exertion and significant cough. There were no overnight events reported. Objective Current Medications: Current Medications Sig/Angi Start time Last Medication Dose Route Stop Time Status Admin Acetaminophen 650 MG Q6P PRN 06/19 2100 AC 06/20 PO 2138 Albuterol Sulfate 3 ML EVERY 4 HRS/AWAKE 06/20 1200 AC 06/22 INH 0840 Amlodipine Besylate 10 MG DAILY 06/20 09 AC 06/22 PO 0805 Azithromycin 250 MG DAILY 06/20 0900 AC 06/22 PO 0805 Enoxaparin Sodium 40 MG DAILY 06/20 0900 AC 06/22 SC 0804 Fluticasone 2 SPRAY DAILY 06/21 0900 AC 06/22 Propionate SIMEON 0803 Guaifenesin 600 MG Q12 06/20 0945 AC 06/22 PO 0806 Hydrochlorothiazide 25 MG DAILY 06/20 0900 AC 06/22 PO 0806 Insulin Aspart 0 AT BEDTIME 06/21 2100 AC 06/21 SC 2133 Insulin Aspart 0 TIDAC 06/21 1700 AC 06/22 SC 1209 Ipratropium [place] 2.5 ML EVERY 4 HRS/AWAKE 06/20 1200 AC 06/22 INH 0840 Losartan Potassium 100 MG DAILY 06/20 0900 AC 06/22 PO 0805 Methylprednisolone 40 MG Q12 06/22 0900 AC 06/22 IV 0923 Methylprednisolone 40 MG Q8 06/19 2200 DC 06/22 IV 0542 Metoprolol Succinate 25 MG DAILY 06/22 0900 AC 06/22 PO 0805 Metoprolol Succinate 50 MG DAILY 06/20 0900 DC 06/20 PO 0833 Patient Medication 1 ED ONE ONE 06/21 1800 DC Teaching ED 06/21 1801 Vital Signs & I&O Last 24 Hrs of Vitals and I&O: Vital Signs Date Time Temp Pulse Resp B/P B/P Pulse O2 O2 Flow FiO2 Mean Ox Delivery Rate 06/22 0842 92 Room Air 06/22 0805 5 148/92 06/22 0805 72 148/92 06/22 0800 Room Air 06/22 0631 98.6 58 20 148/92 94 06/22 0603 47 100 06/22 0325 57 100 06/22 0031 76 100 06/21 2316 94 06/21 2301 98.0 60 20 130/60 92 Room Air 06/21 2200 CPAP 2.0L 06/21 1637 93 Room Air Room Air 06/21 1447 98.3 74 20 122/62 91 Nasal 3.0L Cannula 06/21 1400 95 Room Air Intake & Output 06/22 1600 06/22 0800 06/22 0000 Intake Total 250 250 Output Total Balance 250 250 Intake, IV 10 10 Intake, Oral 240 240 Physical Exam General Appearance: no apparent distress, alert, awake, comfortable, morbidly obese Head: atraumatic Neck: supple Respiratory: no respiratory distress, wheezing Cardiovascular: regular rate/rhythm Gastrointestinal: normal bowel sounds, soft, non-tender Extremities: no edema Skin: intact, normal color, warm/dry Impression/Plan Impression/Plan Impression/Plan: 1. Acute bronchitis. 2. Acute bronchospasm. 3. Extremely severe HERACLIO, controlled on CPAP at 14 cm H20, with severe nocturnal oxygen desaturation which will require supplemental O2 at home. 4. Nocturnal hypoxemia. 5. Morbid obesity. 6. Tobacco use disorder. Recommendations: * Continue nocturnal oxygen at 2 L/min, bleeding with CPAP. * Continue nasal CPAP at 14 cm H2O. * Continue nebs/total respiratory care. * Continue Solu-Medrol 40 mg IV but decrease to every 12 hours. * Complete 5 days of oral azithromycin. * Continue blood pressure control per primary team. * DVT prophylaxis at all times. * Anticipate discharge over the weekend.
[2018-06-22 15:06] VITALS: BP 162/84
[2018-06-22 16:41] VITALS: BP 166/98
[2018-06-22 18:18] VITALS: BP 115/68
[2018-06-22 22:12] VITALS: BP 130/80
[2018-06-23 06:19] VITALS: BP 144/80
--- NOTE | 2018-06-23 07:54 | PN- Housestaff ---
Alfonso Pena 06/23/18 0754: Subjective Follow-up For: Acute hypoxic resp. failure sec to bronchitis Severe HERACLIO Subjective: I visited and examined the patient is morning, he was lying back in his bed, alert and oriented 3, no acute distress. He believes that his condition is improved compared to the day of admission. He is still using his CPAP machine on night, with 2 L of oxygen. No major complaints reported overnight. The patient Review of Systems Constitutional: Reports: see HPI. Objective Last 24 Hrs of Vital Signs/I&O Vital Signs Date Time Temp Pulse Resp B/P B/P Pulse O2 O2 Flow FiO2 Mean Ox Delivery Rate 06/23 0950 62 144/80 06/23 0949 62 144/80 06/23 0949 62 144/80 06/23 0759 95 Room Air Room Air 06/23 0619 98.6 62 20 144/80 93 06/23 0600 93 CPAP 2.0L 06/23 0015 72 100 06/23 0000 94 Room Air 06/22 2212 98.1 88 20 130/80 94 06/22 1818 98.1 68 20 115/68 92 06/22 1717 61 166/98 06/22 1641 98.0 61 20 166/98 97 06/22 1610 93 Room Air 06/22 1506 98.1 67 18 162/84 94 06/22 1400 93 Room Air Intake & Output 06/23 1600 06/23 0800 06/23 0000 Intake Total 220 210 Output Total Balance 220 210 Intake, IV 0 10 Intake, Oral 220 200 Number 0 Bowel Movements Physical Exam General Appearance: Alert, Oriented X3, Cooperative, No Acute Distress Skin Temp/Moisture Exam: Warm/Dry (1) Sepsis Skin Exam (color): Normal for Ethnicity HEENT: Atraumatic Neck: Supple Cardiovascular: Regular Rate, Normal S1, Normal S2 Lungs: minimal wheezing Abdomen: Normal Bowel Sounds, Soft, No Tenderness Assessment/Plan Assessment: 48 year old obese male with PMH HTN, HERACLIO with CPAP hs (dx 4 weeks ago), current 1ppd smoker for 27years presenting with three day history of sinus congestion, rhinorrhea, and productive cough. He was recently taking care of his granddaughter who had URI. Patient was acutely hypoxic on presentation to ED; sat 88% requiring 4L NC. URI: Viral likely. Plan: Added flonase for post-nasal drip. Cont. current rx Acute hypoxic respiratory failure: Secondary to bronchitis. Plan: supplemental oxygen as needed; taper, insentive spirometry 10x/hr to prevent atelectasis-->PNA, Azithromycin 5 day course, dubautista, Methylprednisolone 40mg Q8hr IV, methylprednisolone will be tapered as per pulmonology consult. Tomorrow is her last dose of azithromycin. Prednisone taper: 40 mg 3 days, 30 mg 3 days, 20 mg 3 days, 10 mg 3 days, 5 mg 3 days, then discontinue. Severe HERACLIO: His sleep study showed that he desaturated to 70% on room air with CPAP at night but did well with 2 L of oxygen. He will need oxygen at home, so we will try to get oxygen for him, and then he can be discharged home. Plan: CPAP at 14 cm H2O, with 2 L of oxygen nocturnally. Overnight pulse ox done (results pending). Will continue medrol at current dose as per pulmonary and follow exam/pulse ox. Hypertensive urgency: resolved. DVT Px: Lovenox/alps Code: FC Problem List: 1. HERACLIO on CPAP 2. HTN (hypertension) 3. Hypoxia Pain Ratin Pain Location: Not applicable Pain Goal: Remain pain free Pain Plan: Not applicable Tomorrow's Labs & Rationales: As indicated Andreas Wing MD 06/23/18 1350: Attending MD Review Statement Attending Statement Attending MD Statement: examined this patient, discuss w/resident/PA/[employer], agreed w/resident/PA/[employer], discussed with family, reviewed EMR data (avail), discussed with nursing, discussed with case mgmt, amended to note Attending Assessment/Plan: The patient was seen and discussed with house staff. Pulmonary input appreciated. Changed to po prednisone. Need to arrange home oxygen for 2L/min nasal with CPAP at night for severe sleep apnea with nocturnal desaturation. Case management (Gene) aware. Will also check ambulatory pulse oximetry (is good at rest).
--- NOTE | 2018-06-23 08:28 | PN- Pulmonary ---
Subjective HPI/Critical Care Issues: The patient is awake and alert. He reports feeling improved overall. He has very minimal wheezing. His shortness of breath is significantly better. He has no issue with cough, chest congestion, chest pain, abdominal pain, fever or chills. He is doing well with therapy and feels he wants to go home. Objective Current Medications: Current Medications Sig/Angi Start time Last Medication Dose Route Stop Time Status Admin Acetaminophen 650 MG Q6P PRN 06/19 2100 AC 06/20 PO 2138 Albuterol Sulfate 3 ML BID 06/23 2100 AC INH Albuterol Sulfate 3 ML EVERY 4 HRS/AWAKE 06/20 1200 DC 06/23 INH 0758 Amlodipine Besylate 10 MG DAILY 06/20 09 AC 06/22 PO 0805 Azithromycin 250 MG DAILY 06/20 09 AC 06/22 PO 08 Enoxaparin Sodium 40 MG DAILY 06/20 09 AC 06/22 SC 0804 Fluticasone 2 SPRAY DAILY 06/21 09 AC 06/22 Propionate SIMEON 0803 Guaifenesin 600 MG Q12 06/20 0945 AC 06/22 PO 2101 Hydrochlorothiazide 25 MG DAILY 06/20 09 AC 06/22 PO 0806 Insulin Aspart 0 AT BEDTIME 06/21 2100 AC 06/22 SC 2101 Insulin Aspart 0 TIDAC 06/21 1700 AC 06/22 SC 1714 Ipratropium [place] 2.5 ML BID 06/23 2100 AC INH Ipratropium [place] 2.5 ML EVERY 4 HRS/AWAKE 06/20 1200 DC 06/23 INH 0759 Losartan Potassium 100 MG DAILY 06/20 09 AC 06/22 PO 0805 Methylprednisolone 40 MG Q12 06/22 0900 AC 06/22 IV 2101 Methylprednisolone 40 MG Q8 06/19 2200 DC 06/22 IV 0542 Metoprolol Succinate 25 MG DAILY 06/22 09 AC 06/22 PO 0805 Metoprolol Tartrate 25 MG ONCE ONE 06/22 1700 DC 06/22 PO 06/22 1701 1717 Vital Signs & I&O Last 24 Hrs of Vitals and I&O: Vital Signs Date Time Temp Pulse Resp B/P B/P Pulse O2 O2 Flow FiO2 Mean Ox Delivery Rate 06/23 0759 95 Room Air Room Air 06/23 06 98.6 62 20 144/80 93 06/23 06 93 CPAP 2.0L 06/23 0015 72 100 06/23 0000 94 Room Air 06/22 2212 98.1 88 20 130/80 94 06/22 1818 98.1 68 20 115/68 92 06/22 1717 61 166/98 06/22 1641 98.0 61 20 166/98 97 06/22 1610 93 Room Air 06/22 1506 98.1 67 18 162/84 94 06/22 1400 93 Room Air 06/22 0842 92 Room Air Intake & Output 06/23 1600 06/23 0800 06/23 0000 Intake Total 220 210 Output Total Balance 220 210 Intake, IV 0 10 Intake, Oral 220 200 Number 0 Bowel Movements Physical Exam General Appearance: no apparent distress, alert, awake, comfortable, morbidly obese Head: atraumatic Neck: supple Respiratory: no respiratory distress, wheezing significantly improved Cardiovascular: regular rate/rhythm Gastrointestinal: normal bowel sounds, soft, non-tender Extremities: no edema Skin: intact, normal color, warm/dry Results Last 24 Hrs of Lab Results: None available. Impression/Plan Impression/Plan Impression/Plan: 1. Acute bronchitis. 2. Acute bronchospasm, underlying asthma vs. COPD? Will need outpatient pulmonary testing. 3. Extremely severe HERACLIO, controlled on CPAP at 14 cm H20. 4. Nocturnal hypoxemia with severe night time oxygen desaturation which will require supplemental O2 at home, 2 lpm. 5. Morbid obesity. 6. Tobacco use disorder. Recommendations: * Continue nocturnal oxygen at 2 L/min, bleed in with CPAP. * Continue nasal CPAP at 14 cm H2O. * Continue nebs/total respiratory care. * Prednisone taper: 40 mg 3 days, 30 mg 3 days, 20 mg 3 days, 10 mg 3 days, 5 mg 3 days, then discontinue. * Complete 5 days of oral azithromycin. * Continue blood pressure control per primary team. * DVT prophylaxis at all times. * I counseled the patient on the importance of smoking cessation. * The [facility]. * I will see the patient in follow-up, my office will contact him to schedule the appointment.
[2018-06-23 15:19] VITALS: BP 135/80
[2018-06-23 22:17] VITALS: BP 142/80
[2018-06-24 06:25] VITALS: BP 182/110
--- NOTE | 2018-06-24 06:34 | PN- Housestaff ---
See Addendum Subjective Follow-up For: Acute hypoxic resp. failure sec to bronchitis Severe HERACLIO Review of Systems Constitutional: Reports: see HPI. Objective Last 24 Hrs of Vital Signs/I&O Vital Signs Date Time Temp Pulse Resp B/P B/P Pulse O2 O2 Flow FiO2 Mean Ox Delivery Rate 06/24 1506 Room Air 06/24 1426 97.0 68 20 160/70 94 Room Air 06/24 1400 Room Air 06/24 0907 94 Room Air 06/24 0800 93 Room Air 06/24 0735 54 150/110 06/24 0700 74 172/100 06/24 0700 74 172/100 06/24 0659 74 172/100 06/24 0625 97.9 74 20 182/110 91 Room Air 06/24 0600 95 Room Air 06/23 2217 98.5 69 20 142/80 93 Room Air 06/23 2200 95 Room Air 06/23 1940 93 Room Air Intake & Output 06/24 1600 06/24 0800 06/24 0000 Intake Total 60 120 Output Total Balance 60 120 Intake, Oral 60 120 Patient 357 lb Weight Physical Exam General Appearance: Alert, Oriented X3, Cooperative, No Acute Distress Skin: No Rashes Skin Temp/Moisture Exam: Warm/Dry HEENT: Atraumatic Cardiovascular: Regular Rate, Normal S1, Normal S2 Assessment/Plan Assessment: 48 year old obese male with PMH HTN, HERACLIO with CPAP hs (dx 4 weeks ago), current 1ppd smoker for 27years presenting with three day history of sinus congestion, rhinorrhea, and productive cough. He was recently taking care of his granddaughter who had URI. Patient was acutely hypoxic on presentation to ED; sat 88% requiring 4L NC. He had lowest ambulatory O2 with pulse oximetry of 91%, His nocturnal O2 sat while on CPAP at room air dropped to 70s so he needs O2 at home to connect to his CPAP at night. He will be discharged with albuterol added to his medication. URI: Viral likely. Plan: Added flonase for post-nasal drip. Cont. current rx Acute hypoxic respiratory failure: Secondary to bronchitis. Plan: supplemental oxygen as needed; taper, insentive spirometry 10x/hr to prevent atelectasis-->PNA, Azithromycin 5 day course, duonebs, Methylprednisolone 40mg Q8hr IV, methylprednisolone will be tapered as per pulmonology consult. Tomorrow is her last dose of azithromycin. Prednisone taper: 40 mg 3 days, 30 mg 3 days, 20 mg 3 days, 10 mg 3 days, 5 mg 3 days, then discontinue. Severe HERACLIO: His sleep study showed that he desaturated to 70% on room air with CPAP at night but did well with 2 L of oxygen. He will need oxygen at home, so we will try to get oxygen for him, and then he can be discharged home. Plan: CPAP at 14 cm H2O, with 2 L of oxygen nocturnally. Overnight pulse ox done (results pending). Will continue medrol at current dose as per pulmonary and follow exam/pulse ox. Hypertensive urgency: resolved. DVT Px: Lovenox/alps Code: FC Problem List: 1. HERACLIO on CPAP 2. HTN (hypertension) 3. Hypoxia Pain Ratin Pain Location: Not applicable Pain Goal: Remain pain free Pain Plan: Not applicable Tomorrow's Labs & Rationales: Not applicable
[2018-06-24 07:35] VITALS: BP 150/110
[2018-06-24] MEDS ORDERED: PREDNISONE10 M2 PO ×3 (09:57→15:33)
[2018-06-24] MEDS ORDERED: COZAAR100 M1 PO ×2 (09:57→15:33)
--- NOTE | 2018-06-24 10:03 | Patient Discharge Instructions ---
Discharge Instructions General Discharge Information You were seen/treated for: Acute hypoxic resp. failure sec to bronchitis Severe HERACLIO Special Instructions: Please follow-up with your PCP Please follow-up with your paper supervisor, Dr. Lucio Please use oxygen at night while you are using your CPAP machine His call your PCP if you notice any lightheadedness, dizziness, headache Diet Continue normal diet: Yes Activity Full Activity/No Limits: No Activity Self Limited: Yes Acute Coronary Syndrome Inclusion Criteria At DC or during hospital stay patient has or had the following: ACS DIAGNOSIS No Discharge Core Measures Meds if any: Prescribed or Continued at Discharge Meds if any: NOT Prescribed or Continued at Discharge Congestive Heart Failure Inclusion Criteria At DC or during hospital stay patient has or had the following: CHF DIAGNOSIS No Discharge Core Measures Meds if any: Prescribed or Continued at Discharge Meds if any: NOT Prescribed or Continued at Discharge Cerebrovascular accident Inclusion Criteria At DC or during hospital stay patient has or had the following: CVA/TIA Diagnosis No Discharge Core Measures Meds if any: Prescribed or Continued at Discharge Meds if any: NOT Prescribed or Continued at Discharge Venous thromboembolism Inclusion Criteria VTE Diagnosis No VTE Type NONE VTE Confirmed by (Test) NONE Discharge Core Measures - Per Current guidelines, there needs to be overlap - treatment for the first 5 days of Warfarin therapy. - If discharged on Warfarin prior to 5 days of - overlap therapy, the patient will need to be - assessed for post discharge needs including - *Post discharge parental anticoagulation - *Warfarin and/or parental anticoagulation education - *Follow up date to check INR post discharge At least 5 days overlap therapy as Inpatient No Meds if any: Prescribed or Continued at Discharge Note: Overlap Therapy is Warfarin and Anticoagulant Meds if any: NOT Prescribed or Continued at Discharge
--- NOTE | 2018-06-24 11:49 | Discharge Summary ---
See Addendum Visit Information Visit Dates Admission Date: 06/19/18 Discharge Date: 06/24/2018 Hospital Course Course Attending Physician: Andreas Wing MD Primary Care Physician: Christopher CHAIDEZ,Juan Melgoza Consulting Request: Consulting Specialty: Pulmonary Disease Consulting Physician: Brandon Hurst MD Reason for Consult: AECOPD, HERACLIO on CPAP Hospital Course: 48 year old obese male with PMH HTN, HERACLIO with CPAP hs (dx 4 weeks ago), current 1ppd smoker for 27years presenting with three day history of sinus congestion, rhinorrhea, and productive cough. He was recently taking care of his granddaughter who had URI. Patient was acutely hypoxic on presentation to ED; sat 88% requiring 4L NC. He had lowest ambulatory O2 with pulse oximetry of 91%, His nocturnal O2 sat while on CPAP at room air dropped to 70s so he needs O2 at home to connect to his CPAP at night. He will be discharged with albuterol added to his medication. URI: Viral likely. Plan: Added flonase for post-nasal drip. Cont. current rx Acute hypoxic respiratory failure: Secondary to bronchitis. Plan: supplemental oxygen as needed; taper, insentive spirometry 10x/hr to prevent atelectasis-->PNA, Azithromycin 5 day course, tosin, Methylprednisolone 40mg Q8hr IV, methylprednisolone will be tapered as per pulmonology consult. Tomorrow is her last dose of azithromycin. Prednisone taper: 40 mg 3 days, 30 mg 3 days, 20 mg 3 days, 10 mg 3 days, 5 mg 3 days, then discontinue. Severe HERACLIO: His sleep study showed that he desaturated to 70% on room air with CPAP at night but did well with 2 L of oxygen. He will need oxygen at home, so we will try to get oxygen for him, and then he can be discharged home. Plan: CPAP at 14 cm H2O, with 2 L of oxygen nocturnally. Overnight pulse ox done (results pending). Will continue medrol at current dose as per pulmonary and follow exam/pulse ox. Hypertensive urgency: resolved. DVT Px: Lovenox/alps Code: FC Allergies: Coded Allergies: No Known Allergies (06/19/18) Disposition Summary Disposition Principal Diagnosis: AECOPD Additional Diagnosis: Severe HERACLIO, on CPAP, will need nocturnal O2 Discharge Disposition: home or self care Discharge Instructions General Discharge Information Code Status: Full Code Patient's Diet: Regular diet Patient's Activity: As tolerated Follow-Up Instructions/Appts: Please taper your prednisolone: 40 mg 3 days, 30 mg 3 days, 20 mg 3 days, 10 mg 3 days, 5 mg 3 days, then discontinue. Please follow up with your lead cargoman Please follow up with your PCP Please use O2 at night while you are using your CPAP Medications at Discharge Discharge Medications: Continue taking these medications: Metoprolol Succ XL (Toprol Xl) 50 MG TAB 1 Tablet ORAL DAILY Qty = 30 Instructions: take as instructed Comments: Last Taken: 06/24/18 Time: 7:00 AM This prescription has been renewed Amlodipine Bes/Olmesartan Med ([place] 10-40 MG Tablet) 10 MG-40 MG TABLET 1 Tablet ORAL DAILY Qty = 30 Comments: Last Taken: 06/24/18 Time: 7:00 AM This prescription has been renewed Hydrochlorothiazide (Hydrochlorothiazide) 25 MG TABLET 1 Tablet ORAL DAILY Qty = 30 Comments: Last Taken: 06/24/18 Time: 7:00 AM This prescription has been renewed Start taking the following new medications: Albuterol Sulfate (Proair Hfa) 90 MCG HFA.AER.AD 2 Puff Inhale through mouth EVERY 4-6 HOURS NEEDED as needed for COPD Qty = 1 No Refills Instructions: take as instructed Comments: Last Taken: 06/24/18 Time: 8:00 AM Losartan (Cozaar) 100 MG TABLET 100 Milligram ORAL DAILY Qty = 60 Refills = 1 Instructions: Please take one every day. Comments: Last Taken: 06/24/18 Time: 7:00 AM Prednisone (Prednisone) 10 MG TABLET 0 ORAL SEE INSTRUCTIONS Qty = 28 No Refills Instructions: take 4 tab 06/25 and 06/26 3 tab 06/27 - 9/1 2 tab 9/2 - 9/4 1 tab /5 - 7 0.5 tab 8 - 07/08 Comments: Last Taken: GIVEN 40MG 06/24/18 Time: 7:00 AM Inhaler, Assist Devices (Space Chamber Plus) 1 EACH SPACER 1 Unit Inhale through mouth DAILY NEEDED Qty = 1 No Refills Instructions: take as instructed Copies To: Christopher CHAIDEZ,Juan Melgoza
[2018-06-24 14:26] VITALS: BP 160/70
[2018-06-24] MEDS ORDERED: PROAIR HFA8.5 GM INH ×2 (15:19→15:33)
[2018-06-24] MEDS ORDERED: SPACE CHAMBER1 EACH INH ×2 (15:19→15:33)
[2018-06-24] MEDS ORDERED: TOPROL XL50 M1 PO (15:33)
[2018-06-24] MEDS ORDERED: AZOR 10-40 MG1 EACH PO (15:33)
[2018-06-24] MEDS ORDERED: HYDROCHLOROTHIA25 M1 PO (15:33)
== END 2018-06-24 15:40 | DRG 140 ==
LOC: ERH 16:16 → ERHI 19:00 → 2NA 19:00 → ENRESERV 21:33 → ENTRNSPT 21:43 → EDTRNSPTSTS 21:48 → EDTRNSPT 21:48 → 2NA 21:50 → CMPTRNSPT 22:07 → 2NA 06-20 12:23
PROVIDERS: Hospitalist; Physician Assistant Medical
PROC: 5A09457 Assistance with Respiratory Ventilation, 24-96 Consecutive Hours, Continuous Positive Airway Pressure (ICD-10-PCS; principal; 2018-06-20)
DX: J44.1 Chronic obstructive pulmonary disease with (acute) exacerbation (principal); I10 Essential (primary) hypertension; G47.33 Obstructive sleep apnea (adult) (pediatric); F17.210 Nicotine dependence, cigarettes, uncomplicated; I16.0 Hypertensive urgency; Z68.42 Body mass index [BMI] 45.0-49.9, adult; J20.9 Acute bronchitis, unspecified; J44.0 Chronic obstructive pulmonary disease with (acute) lower respiratory infection; G47.36 Sleep related hypoventilation in conditions classified elsewhere; E66.01 Morbid (severe) obesity due to excess calories; J96.01 Acute respiratory failure with hypoxia
CPT/HCPCS: 2NASP; 36592; 71046; 82436; 87070; 87071; 93005; 93010; 96374; 96375; 99291; J0456; J0696; J1650; J2920; J3490; J7040